=== PATIENT | female | born 1990 | race African-American/Black ===

== ENCOUNTER 2016-04-24 17:18 | Emergency (ER) | payer MEDICAID ==
[~2016-04-24] VITALS: Ht 160 cm; Wt 60.0 kg
[~2016-04-24 17:18] MED LIST: FERR325T PO; LORTA5 PO; PERC5TAB12 PO
[2016-04-24 17:20] VITALS: BP 119/80; PULSE 104; RESP 16; TEMP 97.8; O2SAT 98
--- NOTE | 2016-04-24 17:40 | PD ---
HPI Chief Complaint: Allergic/Adverse Reaction Time Seen by Provider: 17:35 Travel History International Travel<30 days: No Contact w/Intl Traveler<30days: No Traveled to known affect area: No History of Present Illness HPI Patient comes to the emergency Department after apparently having an allergic reaction to Mucinex. Patient states that she was taking care of her daughter who was diagnosed upper respiratory infection and is now better however the past couple days she started having similar symptoms. Patient took ibuprofen last night, woke up severely congested today went and bought Mucinex over-the- counter and approximately hour later started becoming very pruritic and a rash started to develop. Patient denies any fevers, nausea, vomiting, chest pain, abdominal pain, throat swelling, or other known new allergen exposures. Patient states she felt more problems breathing through her nose since taking the Mucinex but denies shortness of breath. PFSH Past Medical History Anemia: Yes Anxiety: Yes Depression: No Cancer: No Cardiovascular Problems: No Diminished Hearing: No Endocrine: No Gastrointestinal Disorders: No Genitourinary: No Immune Disorder: No Implanted Vascular Access Dvce: No Musculoskeletal: No Neurologic: No Reproductive: No Respiratory: No : 3 Para: 0 Miscarriage: 1 : 0 Ovarian Cysts: Yes Dilation and Curettage (D&C): Yes () Past Surgical History Abdominal Surgery: Yes (HERNIA REPAIR AT AGE 1) Other Surgery: Yes (HERNIA SX) Social History Alcohol Use: No Tobacco Use: No Substance Use: No Allergies-Medications (Allergen,Severity, Reaction): Coded Allergies: Naproxen (Verified Allergy, Mild, RASH, 04/24/16) Reported Meds & Prescriptions Reported Meds & Active Scripts Active Pepcid (Famotidine) 20 Mg Tab 20 Mg PO BID 10 Days Medrol Dosepak (Methylprednisolone) 4 Mg Dspk 4 Mg PO DIRECTED Per Pharmacist direction Review of Systems Except as stated in HPI: all other systems reviewed are Neg Physical Exam Narrative GENERAL: Well-developed, well nourished, in no acute distress, and non-ill appearing. SKIN: Warm and dry. Hives noted bilateral upper extremities, neck, and back. HEAD: Atraumatic. Normocephalic. EYES: Pupils equal and round. EOMI. No scleral icterus. No injection or drainage. ENT: No nasal bleeding or discharge. Mucous membranes pink and moist. Tympanic membranes pearly diamond bilaterally. Posterior pharynx nonerythematous without exudate. Uvula is midline. NECK: Trachea midline. No cervical lymphadenopathy. Supple. No nuclear rigidity. No stridor. CARDIOVASCULAR: Regular rate and rhythm. No murmur appreciated. RESPIRATORY: No accessory muscle use. No respiratory distress. Clear to auscultation. Breath sounds equal bilaterally. Patient speaking in full sentences without difficulty. GASTROINTESTINAL: Abdomen soft, non-tender, nondistended. Hepatic and splenic margins not palpable. Normal bowel sounds 4. No pulsatile mass. MUSCULOSKELETAL: No obvious deformities. No clubbing. No cyanosis. No edema. Full range of motion. NEUROLOGICAL: Awake and alert. No obvious cranial nerve deficits. Motor grossly within normal limits. Normal speech. PSYCHIATRIC: Appropriate mood and affect; insight and judgment normal. Data Data Last Documented VS Vital Signs Date Time Temp Pulse Resp B/P Pulse Ox O2 Delivery O2 Flow Rate FiO2 04/24/16 17:53 98.2 04/24/16 17:20 104 16 119/80 98 Room Air Orders Methylprednisolone So Succ Inj (Solumedr (04/24/16 17:45) Famotidine (Pepcid) (04/24/16 17:45) Diphenhydramine (Benadryl) (04/24/16 17:45) MDM Medical Decision Making Medical Screen Exam Complete: Yes Emergency Medical Condition: Yes Differential Diagnosis Allergic reaction, viral rash, contact dermatitis, other Narrative Course Appears allergic reaction. There is no airway involvement nor difficulty swallowing. Patient looks great. The patient is tolerating fluids. The patient looks great, the findings are minimal and due to non-progression of symptoms here the patient is safe to discharge home. The patient feels comfortable with plan and will return immediately if symptoms begin to worsen. The rash is not consistent with erythema multiforme at this time. The patient is to continue histamine 1 and 2 blockade as well as steroids. The patient was instructed to avoid potential precipitating factor and to follow up with their regular physician and or follow up with artificial intelligence specialist for definitive allergy testing. The patient agrees with plan. Patient in no obvious distress upon re-evaluation. Discussed patient with Dr. Rodriguez, prior to discharge, who is in agreement with plan of care and disposition. Patient was asked if they wanted to speak to my attending, which the patient did not wish to do at this time. Any questions/concerns in reference to patient diagnosis/condition discussed and clarified prior to patient's discharge. Reinforced sheer importance of close follow up with patient 's primary physician or primary care clinic. Instructed patient to return to ED immediately, if symptoms return/worsen. Pt showed understanding of above instructions. Further instructions and recommendations were detailed in discharge paperwork. Pt ambulated without difficulty out of ED at discharge. Diagnosis Primary Impression: Allergic reaction Qualified Code: T78.40XA - Allergic reaction, initial encounter Patient Instructions: General Allergic Reaction (ED), General Instructions Additional Instructions: Follow-up with your primary care physician in 2-3 days for reevaluation and possible allergy testing. Take all medication as prescribed. Use over-the- counter Claritin or Zyrtec or Benadryl for symptomatic relief. Follow instructions on the packaging. Return to the emergency department if symptoms get worse. Med/Other Pt SpecificInfo: Prescription(s) given Scripts Famotidine (Pepcid)20 Mg Tab20 Mg PO BID 10 Days Ref 0 Prov:Bhaskar Rodriguez MD 04/24/16 Methylprednisolone Dosepak (Medrol Dosepak)4 Mg Dspk4 Mg PO DIRECTED #1 DSPK Ref 0 Per Pharmacist direction Prov:Bhaskar Rodriguez MD 04/24/16 Disposition: 01 DISCHARGE HOME Condition: Stable Nik Voss Apr 24, 2016 17:39
--- NOTE | 2016-04-24 17:42 | PD ---
Data Data Last Documented VS Vital Signs Date Time Temp Pulse Resp B/P Pulse Ox O2 Delivery O2 Flow Rate FiO2 04/24/16 17:53 98.2 04/24/16 17:20 104 16 119/80 98 Room Air Orders Methylprednisolone So Succ Inj (Solumedr (04/24/16 17:45) Famotidine (Pepcid) (04/24/16 17:45) Diphenhydramine (Benadryl) (04/24/16 17:45) MDM Supervised Visit with JOSR: Yes Narrative Course I, Dr. Rodriguez, have reviewed the advance practice practitioner's documentation and am in agreement, met with the patient face to face, made the diagnosis, and the medical decision making was done by me. *My assessment and Findings: Patient with fairly widespread pruritic hives after taking OTC cold medicine today. She has no apparent airway involvement. Oropharynx widely patent. Patient in NAD. watched in the ER, given solumedrol and benadryl given. Patient stating to nursing she felt much better and wanted to go home. Diagnosis Primary Impression: Allergic reaction Qualified Code: T78.40XA - Allergic reaction, initial encounter Scripts Famotidine (Pepcid)20 Mg Tab20 Mg PO BID 10 Days Ref 0 Prov:Bhaskar Rodriguez MD 04/24/16 Methylprednisolone Dosepak (Medrol Dosepak)4 Mg Dspk4 Mg PO DIRECTED #1 DSPK Ref 0 Per Pharmacist direction Prov:Bhaskar Rodriguez MD 04/24/16 Condition: Stable Bhaskar Rodriguez MD Apr 24, 2016 17:42
[2016-04-24] MEDS ORDERED: diphenhydrAMINE HCL 25 MG CAP PO ONE (17:45)
[2016-04-24] MEDS ORDERED: methylPREDNISolone SOD SUCC 125 MG/2 ML VIAL IM ONE (17:45)
[2016-04-24] MEDS ORDERED: FAMOTIDINE 20 MG TAB PO ONE (17:45)
[2016-04-24 17:53] VITALS: TEMP 98.2
[2016-04-24] MEDS ORDERED: MEDR4PAK PO (19:13)
[2016-04-24] MEDS ORDERED: FAMO1TAB37 PO (19:13)
== END 2016-04-24 19:30 | disposition home or self-care (01) ==
LOC: NEPA 17:18
DX: T78.40XA Allergy, unspecified, initial encounter (principal); D64.9 Anemia, unspecified; F41.9 Anxiety disorder, unspecified
CPT/HCPCS: 96372; 99283; J2930

== ENCOUNTER 2016-08-05 23:44 | Emergency (ER) | payer MEDICAID ==
[~2016-08-05 23:44] MED LIST changes: +FAMO1TAB37 PO; -FERR325T PO; -LORTA5 PO; +MEDR4PAK PO; -PERC5TAB12 PO
--- NOTE | 2016-08-06 00:41 | PD ---
HPI Chief Complaint Lower abdominal pain Date Seen: Aug 06, 2016 Travel History International Travel<30 Days: No Contact w/Intl Traveler<30Days: No Known Affected Area: No History of Present Illness HPI 25-year-old black female she is now at 22 weeks who presents complaining of lower abdominal pain for several days. Patient denies bleeding or ruptured membranes, heart rate is within normal limits. Patient states that she's been working all day on her feet most of that time, and she states she was already hurting when she went to work but just went ahead anyway Para: 3 : 6 History Past Medical History Narrative Medical anemia Obstetric History Obstetric History 3 vaginal deliveries past Social History Alcohol Use: No Tobacco Use: No Substance Abuse: No Allergies-Medications (Allergen,Severity, Reaction): Coded Allergies: Naproxen (Verified Allergy, Mild, RASH, 04/24/16) Home Meds Active Scripts Famotidine (Pepcid)20 Mg Tab20 Mg PO BID 10 Days Ref 0 Prov:Bhaskar Rodriguez MD 04/24/16 Methylprednisolone Dosepak (Medrol Dosepak)4 Mg Dspk4 Mg PO DIRECTED #1 DSPK Ref 0 Per Pharmacist direction Prov:Bhaskar Rodriguez MD 04/24/16 Review of Systems General / Constitutional: No: Fever, Weight Gain, Chills, Other Eyes: No: Diploplia, Blurred Vision, Visual changes, Pain, Photophobia HENT: No: Headaches, Vertigo, Lightheadedness Cardiovascular: No: Irregular Rhythm, Chest Pain or Discomfort, Palpitations, Tachycardia, Syncope, Varicosities, Edema, Cyanosis Respiratory: No: Cough, Short of Breath, Other Gastrointestinal: Abdominal Pain, No: Nausea, Vomiting, Diarrhea Genitourinary: No: Decreased Urinary Output, Oliguria Musculoskeletal: No: Limited ROM, Weakness, Cramping, Edema, Pain Skin: No Rash, No Itching, No Dryness, No Lumps, No Change in Pigmentation, No Change in Nails, No Alopecia, No Lesions Neurologic: No: Weakness, Dizziness, Syncope, Focal Abnormalities, Coordination Problem, Headache, Slurred Speech, Seizures Psychiatric: No: Depression, Suicidal Ideations, Homicidal Ideation Endocrine: No: Heat Intolerance, Cold Intolerance, Polydipsia, Polyuria, Other Physical Exam Narrative GENERAL: Well-nourished, well-developed patient. SKIN: Warm and dry. HEAD: Normocephalic and atraumatic. EYES: No scleral icterus. No injection or drainage. ENT: No nasal drainage noted. Mucous membranes pink. Airway patent. NECK: Supple, trachea midline. No JVD. CARDIOVASCULAR: Regular rate and rhythm without murmurs, gallops, or rubs. RESPIRATORY: Breath sounds equal bilaterally. No accessory muscle use. BREASTS: Bilateral exam showed no masses , no retractions, no nipple discharge. ABDOMEN/GI: Abdomen soft, minimally-tender, bowel sounds present, no rebound, no guarding Gravid to [-22] weeks size Fundal Height: [At umbilicus-] GENITOURINARY: External Genitalia: intact and normal in appearance Speculum exam done vagina visualized no blood seen no infective discharge noted-] Cervix: [-] Dilatation: [-Closed] Effacement: [-] Thick Station: [-3] Membranes: [intact ] Uterine Contractions: [-] FHT's: 134 EXTREMITIES: No cyanosis or edema. BACK: Nontender without obvious deformity. No CVA tenderness. NEUROLOGICAL: Awake and alert. Motor and sensory grossly within normal limits. Five out of 5 muscle strength in all muscle groups. Normal speech. Data Data Orders Urinalysis - C+S If Indicated (08/06/16 00:11) MDM Interpretation(s) Patient is 25-year-old black female now at 22 weeks gestation presents clinically lower abdominal pain that is almost certainly related to soft tissue strain and pain from working too much standing on her feet 8 or 9 hours at a time, and going to work when she is already hurting and is going to work makes it only worse,. urinalysis is pending at the time of this dictation if that is positive she'll receive Macrobid 100 mg by mouth twice a day for a week. Patient is not wicho and her cervix is closed and thick Plan Recommend the patient be off her feet for the next 2 days resting as much as possible not working she receive a work note for that, she can use Tylenol 1 or 2 orally for pain every 4 hours[ she has not taken anything like that up to this point] I recommend use of a heating pad on low across the lower abdomen or soaking in a hot bath. bedrest is orr for her here. The patient given a shot of Demerol and Phenergan for pain. She sees Dr. Whitmore of the [facility] in [facility] and she is to follow-up with her doctor on any or further problems or issues Diagnosis Diagnosis: Primary Impression: Abdominal pain during in second trimester Disposition: 01 DISCHARGE HOME Condition: Stable Andrew Alston II, MD Aug 06, 2016 00:41
[2016-08-06] MEDS ORDERED: MEPERIDINE HCL 25 MG/ML VIAL IM ONE (00:45)
[2016-08-06 01:04] LABS: BACTERIA, URINE RARE /hpf; BLOOD, URINE NEG (NEG); COMMENT (UR) CULTURE INDICATED; CULTURE IF INDICATED CULTURE INDICATED; GLUCOSE,URINE NEG (NEG); KETONE, URINE TRACE mg/dL (NEG); MUCUS URINE FEW /lpf (OCC); NITRITE,URINE NEG (NEG); PH, URINE 6.5 (5.0-8.5); SQUAMOUS EPITHELIAL CELL URINE 4 /hpf (0-5); URINE COLOR YELLOW (YELLW/STRAW)
== END 2016-08-06 01:15 | disposition home or self-care (01) ==
LOC: HOBED 23:44
DX: O26.892 Other specified pregnancy related conditions, second trimester (principal); R10.30 Lower abdominal pain, unspecified; Z3A.22 22 weeks gestation of pregnancy
CPT/HCPCS: 81001; 87086; 99282

== ENCOUNTER 2016-09-17 01:06 | Emergency (ER) | payer MEDICAID ==
[2016-09-17] MEDS ORDERED: TERC0.8C VAGINAL (01:48)
--- NOTE | 2016-09-17 01:48 | PD ---
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 She last had intercourse 36 hours ago and experienced no bleeding at that time. She complains of a little bit of vaginal irritation. She has pain in the pubic bone that radiates down her legs bilaterally that worsens with lengthy periods of standing for working Para: 3 : 6 : 2 History Past Medical History Narrative Medical Anemia Medical History: Denies Significant Hx Obstetric History Obstetric History Spontaneous vaginal delivery 3 Past Surgical History Narrative Surgical Umbilical hernia repair Family History Family History: Negative Social History Alcohol Use: No Tobacco Use: No Substance Abuse: No Allergies-Medications (Allergen,Severity, Reaction): Coded Allergies: Naproxen (Verified Allergy, Mild, RASH, 04/24/16) Home Meds Active Scripts Famotidine (Pepcid)20 Mg Tab20 Mg PO BID 10 Days Ref 0 Prov:Bhaskar Rodriguez MD 04/24/16 Methylprednisolone Dosepak (Medrol Dosepak)4 Mg Dspk4 Mg PO DIRECTED #1 DSPK Ref 0 Per Pharmacist direction Prov:Bhaskar Rodriguez MD 04/24/16 Review of Systems Except as stated in HPI: all other systems reviewed are Neg Physical Exam Narrative GENERAL: Well-nourished, well-developed patient. SKIN: Warm and dry. HEAD: Normocephalic and atraumatic. EYES: No scleral icterus. No injection or drainage. ENT: No nasal drainage noted. Mucous membranes pink. Airway patent. NECK: Supple, trachea midline. No JVD. CARDIOVASCULAR: Regular rate and rhythm without murmurs, gallops, or rubs. RESPIRATORY: Breath sounds equal bilaterally. No accessory muscle use. BREASTS: Bilateral exam showed no masses , no retractions, no nipple discharge. ABDOMEN/GI: Abdomen soft, non-tender, bowel sounds present, no rebound, no guarding Gravid to [-] weeks size Fundal Height: [28-] GENITOURINARY: External Genitalia: intact and normal in appearance BUS glands: [Normal-] Cervix: [-Visually appears closed] Dilatation: [-] Vaginal area consistent with a discharge that looks like a yeast infection no blood in the vagina or on the cervix Effacement: [-] Station: [-] Presentation: [-] Membranes: [intact ] Uterine Contractions: [-Absent] FHT's: Category: [-1] Baseline: ] 140 Reactive: [-] Moderate Variability: [-] Moderate Decels: [-] Absent EXTREMITIES: No cyanosis or edema. BACK: Nontender without obvious deformity. No CVA tenderness. NEUROLOGICAL: Awake and alert. Motor and sensory grossly within normal limits. Five out of 5 muscle strength in all muscle groups. Normal speech. Data Data Vital Signs Reviewed: Yes MDM Medical Record Reviewed: Yes Plan 25-year-old at 28 weeks 1 day Pubic discomfort radiating down her legsurine dip was negative for leukocytes leukocyte esterase and nitrites. Discussed with the patient the use of a support belt and possible changes at work Vaginal spottingno signs of blood whatsoever in the vaginal canal today patient does have discharge consistent with yeast infection which I will prescribe an antifungal and recommended no intercourse for the next week Diagnosis Diagnosis: Primary Impression: Pelvic pain affecting in second trimester, antepartum Additional Impressions: 28 weeks gestation of Amada vaginitis Vaginal bleeding during , antepartum Disposition: 01 DISCHARGE HOME Scripts Terconazole Vaginal Cream 0.8 % Cream1 Appl VAGINAL HS #20 GM Ref 0 For 3 days. Prov:Yesenia Gilmore MD 09/17/16 Yesenia Gilmore MD Sep 17, 2016 01:48
== END 2016-09-17 01:58 | disposition home or self-care (01) ==
LOC: HOBED 01:06
DX: O46.93 Antepartum hemorrhage, unspecified, third trimester (principal); O98.813 Other maternal infectious and parasitic diseases complicating pregnancy, third trimester; B37.3 Candidiasis of vulva and vagina; Z3A.28 28 weeks gestation of pregnancy
CPT/HCPCS: 99283